=== PATIENT | female | born 1980 | race Caucasian/White ===

== ENCOUNTER 2016-09-17 19:03 | Emergency (ER) | payer OTHER ==
[~2016-09-17] VITALS: Ht 165.1 cm; Wt 151.0 kg
[~2016-09-17 19:03] MED LIST: CHN/1 PO; ERGO1CAP35 PO; TRAM-10 PO
[2016-09-17 19:20] VITALS: TEMP 36.6; Ht 165.1 cm; Wt 151.0 kg
[2016-09-17] MEDS ORDERED: ORAGEL TOP (19:36)
[2016-09-17] MEDS ORDERED: IBUP-103 PO (19:36)
[2016-09-17] MEDS ORDERED: ACET-1256 PO (19:36)
[2016-09-17] MEDS ORDERED: KETOROLAC TROMETHAMINE 60 MG/2 ML VIAL IM STA (19:52)
[2016-09-17] MEDS ORDERED: PENICILLIN V POTASSIUM 250 MG TAB PO STA (19:52)
[2016-09-17] MEDS ORDERED: CYCL5TAB PO (20:30)
[2016-09-17] MEDS ORDERED: PENI-82 PO (20:30)
--- NOTE | 2016-09-17 20:32 | EMERGENCY ROOM VISIT NOTE ---
ED Visit Note First contact with patient: 19:37 CHIEF COMPLAINT: Low back pain, dental pain HISTORY OF PRESENT ILLNESS: This 36-year-old female patient presents to the emergency department, ambulatory, complaining of pain in the low back which began is morning, after lifting her 3-month-old out of her PAC complaint. The pain is now constant and worse with movement. The patient notes the pain as pressure and a 10/10. The patient has taken one Vicodin and taking a warm bath without relief of the pain. The patient states the pain does radiate down her left leg. The patient denies any loss of control of their bowel or bladder functions. There has been no leg numbness or weakness, and no change in sensation. No nausea or vomiting or abdominal pain. No chest pain or shortness of breath. The patient has had prior back injuries and surgery. No dysuria or increased urinary frequency. The patient also complains of a progressive toothache for past 2 weeks. The patient believes it is coming from her lower back molar on the right. The pain is now steady and severe and radiates to the face. The patient does not have a dentist appointment set up because she states she has just switched dentist due to her insurance. They rate their pain a 10/10 and the oragel, ibuprofen and Tylenol they have been taking has not relieved the pain. Denies facial swelling or fever. The patient denies any discharge from the mouth. The patient has experienced chills, but denies fever, nausea, vomiting. REVIEW OF SYSTEMS: A 10-system review of systems was performed with positives and pertinent negatives listed in the history of present illness. All other systems were reviewed and are negative. ALLERGIES: Pyridium MEDICATIONS: None PMH: Lumbar laminectomy, chronic low back pain SOCIAL HISTORY: The patient lives in [place] with her boyfriend and children. The patient denies alcohol use. The patient does admit to smoking approximately 5 cigarettes per day. The patient also admits to smoking marijuana. PHYSICAL EXAM: VITALS: Vitals are noted on the nurse's note and reviewed by myself. Vital signs stable. GENERAL: This is a 36-year-old female, in no acute distress, nondiaphoretic, well-developed well-nourished. SKIN: The skin was without rashes, erythema, edema, or bruising. Capillary refill less than 2 seconds. MOUTH: The #32 tooth is very carious and the gum is swollen and tender around it, without any discharge or signs of an abscess. The remainder of the pharynx and tonsils are without erythema, edema, or exudate. The airway is patent. There is no facial swelling, cervical or submandibular lymphadenopathy. The patient appears uncomfortable and in pain. The patient has overall extremely poor dental hygiene. EARS: External auditory canals clear, tympanic membranes pearly herring without erythema or effusion bilaterally. NECK: Supple without nuchal rigidity. No cervical spine tenderness. No paraspinous muscle tenderness. HEART: Regular rate and rhythm without murmurs gallops or rubs. LUNGS: Clear to auscultation bilaterally without wheezes, rales or rhonchi. ABDOMEN: Positive bowel sounds x 4. Normal tympanic percussion. Soft, nontender, without masses or organomegaly. Daniel sign negative. MUSCULOSKELETAL: No muscle atrophy, erythema, or edema noted of the back. There is moderate tenderness over the lumbar spinous processes on the left. There is mild tenderness over the paraspinous muscles on the left. There is no tenderness over the thoracic spine or paraspinous muscles. There are no muscle spasms present. The patient is slow to move around with maximum tenderness with positional changes. Positive straight leg raise test on the left. NEURO: Patient was alert and oriented to person place and time. Normal sensation to light and sharp touch. Deep tendon reflexes 2+ in the lower extremities. Dorsalis pedis pulse 2+ bilaterally. Strength 5/5 and equal in the bilateral lower extremities. RADIOLOGY: X-Ray L-Spine: FINDINGS: There is no fracture. No subluxation. Degenerative disc change L5-S1 unaltered from the prior study. Posterior elements appear intact. IMPRESSION: Stable degenerative disc change L5-S1. No change from the prior exam. EMERGENCY DEPARTMENT COURSE: She was seen and evaluated as above. X-ray of the lumbar spine was ordered and reviewed by myself and radiologist. The patient was given a dose of Pen-Vee K by mouth and 60 mg Toradol IM. The patient did report mild improvement in her pain. I discussed discharge instructions the patient, and she was discharged home in good condition. I did consult with PDMP with no issues identified. DIFFERENTIAL DIAGNOSIS: Dental abscess, odontalgia, lumbar strain, sciatica, lumbar fracture, acute sinusitis, acute nasopharyngitis, acute otitis media, and others. DIAGNOSIS: Lumbar strain, odontalgia DISCHARGE INSTRUCTIONS AND TREATMENT: You have been treated in the Emergency Department for Back Pain and dental pain. You were prescribed PCN VK to be taken 3 times daily. This is an antibiotic. All antibiotics have the potential to cause diarrhea. Stop this medication and contact a medical provider if you were to develop any significant adverse side effects including: wheezing, shortness of breath, passing out, vomiting, or a diffuse rash. Always take antibiotics as directed and COMPLETE the ENTIRE course regardless of the improvement of your symptoms. Refrain from smoking cigarettes or using chewing tobacco until you have been evaluated by your dentist. Keeping beverages lukewarm and consuming soft foods can decrease your pain. Warm compresses over the affected area may offer some relief. You MUST seek evaluation of your dental pain by a dentist following your visit to the Emergency Department. The Emergency Department is not capable of treating dental issues long-term. You should call your dentist as soon as possible to make an appointment for evaluation of your dental pain. Return to the emergency department if you develop the following symptoms despite treatment course outlined above: fever, intractable pain, increased redness, swelling, or purulent discharge. You have been prescribed tramadol to be used for pain control. This is a narcotic medication. You cannot drive or consume alcohol while on this medicine. This medicine should only be used for pain that cannot be controlled with gesm-xox-sqbjrzg pain medicines. You have been prescribed Flexeril (cyclobenzaprine) 1-2 tabs orally, three times per day. Do NOT exceed 30 mg (6 tabs) per day. Take your first dose at bedtime as it can make you drowsy. Always take all medications as prescribed. For pain control, you can use the following wnlf-yps-iafjaid medicines (if >12 yo): Ibuprofen(Motrin, Advil) may be used for fever or pain. Use 600mg every six hours as needed. Take with food. Avoid using more than 2400mg in a 24 hour period. Do not use 2400mg per day for more than three consecutive days without physician direction. Prolonged inappropriate use can lead to stomach upset or ulcers. (AND/OR) Acetaminophen(Tylenol) may be used for fever or pain. Use 1000mg every six hours as needed. Avoid using more than 3000mg in a 24 hour period. If this is an acute injury, ice can be applied to the area of pain for the first 3 days to help decrease pain and inflammation. After the first 3 days, a heating pad can be used over the area for continued soothing relief. You should schedule a follow-up appointment in 2-3 days with your Primary Care Provider or orthopedic surgeon for further evaluation and treatment of your back pain. Return to the Emergency Department if your current symptoms worsen despite treatment course outlined above, or if you develop any of the following symptoms : intractable pain despite aforementioned treatment course, loss of control of your bowel or bladder, numbness or tingling in your groin, or development of a fever. Problem List Medical Problems: (1) Asthma Status: Chronic (2) Bronchitis Status: Chronic (3) Cervicalgia Status: Resolved (4) DVT (deep venous thrombosis) Status: Resolved (5) Gestational diabetes Status: Resolved (6) Hemorrhagic ovarian cyst Status: Resolved (7) Ovarian cyst Status: Chronic (8) Ovarian cyst Status: Resolved (9) Ovarian Cyst Nec/Nos Status: Resolved (10) Ovarian torsion Status: Resolved (11) PE (pulmonary embolism) Status: Resolved (12) PNA (pneumonia) Status: Chronic (13) Postsurgical States Nec Status: Resolved Surgical Problems: (1) History of oophorectomy, unilateral Status: Resolved (2) Hx of cholecystectomy Status: Chronic Current/Historical Medications Scheduled Cyclobenzaprine Hcl (Flexeril), 5 MG PO TID Ibuprofen Tab (Advil), 400 MG PO PRN UD Penicillin V Potassium (Veetids), 500 MG PO TID [Oragel], 1 APPLN TOP PRN Scheduled PRN Acetaminophen (Tylenol), 1,000 MG PO Q6 PRN for Pain Allergies Coded Allergies: Phenazopyridine (Verified Allergy, Unknown, hives, jaundice, 10/29/15) Vital Signs Date Time Temp Pulse Resp B/P (MAP) Pulse Ox O2 Delivery O2 Flow Rate FiO2 09/17/16 19:20 36.6 99 16 144/86 98 Room Air Medications Administered Medications (Trade) Dose Ordered Sig/Tani Route Start Time Stop Time Status Last Admin Dose Admin Ketorolac Tromethamine (Toradol Inj) 60 mg NOW STAT IM 09/17/16 19:52 09/17/16 19:54 DC 09/17/16 20:03 60 MG Penicillin V Potassium (Veetids Tab) 500 mg NOW STAT PO 09/17/16 19:52 09/17/16 19:54 DC 09/17/16 19:59 500 MG Departure Information Impression Primary Impression: Odontalgia Additional Impression: Lumbar back pain Dispostion Home / Self-Care Condition GOOD Prescriptions Tramadol (Ultram) 50 Mg Tab 1 TAB PO TID Y for Pain, #9 TAB Prov: Yazmin Garcia PA-C 09/17/16 Cyclobenzaprine Hcl (FLEXERIL) 5 Mg Tab 5 MG PO TID, #15 TAB PRN Prov: Yazmin Garcia PA-C 09/17/16 Penicillin V Potassium (Veetids) 500 Mg Tab 500 MG PO TID for 10 Days, #30 TAB Prov: Yazmin Garcia PA-C 09/17/16 Referrals Vadim Whittaker M.D. (PCP) Patient Instructions ED Abscess Dental, ED Low Back Pain Injury, [facility] Additional Instructions You have been treated in the Emergency Department for Back Pain and dental pain. You were prescribed PCN VK to be taken 3 times daily. This is an antibiotic. All antibiotics have the potential to cause diarrhea. Stop this medication and contact a medical provider if you were to develop any significant adverse side effects including: wheezing, shortness of breath, passing out, vomiting, or a diffuse rash. Always take antibiotics as directed and COMPLETE the ENTIRE course regardless of the improvement of your symptoms. Refrain from smoking cigarettes or using chewing tobacco until you have been evaluated by your dentist. Keeping beverages lukewarm and consuming soft foods can decrease your pain. Warm compresses over the affected area may offer some relief. You MUST seek evaluation of your dental pain by a dentist following your visit to the Emergency Department. The Emergency Department is not capable of treating dental issues long-term. You should call your dentist as soon as possible to make an appointment for evaluation of your dental pain. Return to the emergency department if you develop the following symptoms despite treatment course outlined above: fever, intractable pain, increased redness, swelling, or purulent discharge. You have been prescribed tramadol to be used for pain control. This is a narcotic medication. You cannot drive or consume alcohol while on this medicine. This medicine should only be used for pain that cannot be controlled with fubk-fci-ocnwebv pain medicines. You have been prescribed Flexeril (cyclobenzaprine) 1-2 tabs orally, three times per day. Do NOT exceed 30 mg (6 tabs) per day. Take your first dose at bedtime as it can make you drowsy. Always take all medications as prescribed. For pain control, you can use the following piab-dmx-zgxkmtf medicines (if >12 yo): Ibuprofen(Motrin, Advil) may be used for fever or pain. Use 600mg every six hours as needed. Take with food. Avoid using more than 2400mg in a 24 hour period. Do not use 2400mg per day for more than three consecutive days without physician direction. Prolonged inappropriate use can lead to stomach upset or ulcers. (AND/OR) Acetaminophen(Tylenol) may be used for fever or pain. Use 1000mg every six hours as needed. Avoid using more than 3000mg in a 24 hour period. If this is an acute injury, ice can be applied to the area of pain for the first 3 days to help decrease pain and inflammation. After the first 3 days, a heating pad can be used over the area for continued soothing relief. You should schedule a follow-up appointment in 2-3 days with your Primary Care Provider or orthopedic surgeon for further evaluation and treatment of your back pain. Return to the Emergency Department if your current symptoms worsen despite treatment course outlined above, or if you develop any of the following symptoms : intractable pain despite aforementioned treatment course, loss of control of your bowel or bladder, numbness or tingling in your groin, or development of a fever. Problem Qualifiers Additional Impression: Lumbar back pain Chronicity: acute Back pain laterality: left Sciatica presence: with sciatica Sciatica laterality: sciatica of left side Qualified Codes: M54.42 - Lumbago with sciatica, left side
--- NOTE | 2016-09-17 20:36 | DIAGNOSTIC IMAGING REPORT ---
L-SPINE MIN 4 VIEWS ROUTINE HISTORY: Pain low back pain COMPARISON: 11/30/2014 FINDINGS: There is no fracture. No subluxation. Degenerative disc change L5-S1 unaltered from the prior study. Posterior elements appear intact. IMPRESSION: Stable degenerative disc change L5-S1. No change from the prior exam. The above report was generated using voice recognition software. It may contain grammatical, syntax or spelling errors. Electronically signed by: Haider Winston M.D. 09/17/2016 8:35 PM Dictated Date/Time: 09/17/2016 8:34 PM
[2016-09-17] MEDS ORDERED: TRAM-10 PO (20:43)
[2016-09-17 21:40] VITALS: BP 101/69; PULSE 73; O2SAT 93
== END 2016-09-17 21:41 | disposition home or self-care (01) ==
LOC: C.EDB 19:05 → C.EDD 21:41
DX: M54.42 Lumbago with sciatica, left side (principal); K08.89 Other specified disorders of teeth and supporting structures; J45.909 Unspecified asthma, uncomplicated; Z86.718 Personal history of other venous thrombosis and embolism; Z87.01 Personal history of pneumonia (recurrent)

== ENCOUNTER 2016-09-28 12:08 | Emergency (ER) | payer OTHER ==
[~2016-09-28] VITALS: Ht 165.1 cm; Wt 133.4 kg
[~2016-09-28 12:08] MED LIST changes: +ACET-1256 PO; -CHN/1 PO; +CYCL5TAB PO; -ERGO1CAP35 PO; +IBUP-103 PO; +ORAGEL TOP; +PENI-82 PO
[2016-09-28 12:19] VITALS: TEMP 36.8; Ht 165.1 cm; Wt 133.4 kg
[2016-09-28] MEDS ORDERED: KETOROLAC TROMETHAMINE 30 MG/ML VIAL IV STA (14:10)
[2016-09-28] MEDS ORDERED: SODIUM CHLORIDE 0.9% 1000ML 1,000 ML IV STA (14:10)
[2016-09-28 14:48] LABS: URINE APPEARANCE CLEAR (CLEAR); URINE BILIRUBIN NEG (NEG); URINE COLOR YELLOW; URINE EPITHELIAL CELL AUTO 20-30 /lpf (0-5); URINE NITRITE POS (NEG); URINE SPECIFIC GRAVITY 1.014 (1.000-1.030); UROBILINOGEN NEG (NEG); ZZUR CULT IF INDIC CLEAN CATCH YES
[2016-09-28 14:56] LABS: MANUAL MICROSCOPIC REQUIRED? NO; REVIEW REQ? NO
[2016-09-28 14:58] LABS: BASO % 0.2 %; BASO ABS # 0.02 K/uL (0-0.2); COMPLETE YES; EOS % 1.9 %; HEMATOCRIT 39.3 % (37-47); IG% 0.4 %; LYMPH % 28.9 %; LYMPH ABS # 2.42 K/uL (1.2-3.4); MEAN CORPUSCULAR HEMOGLOBIN 36.3 pg (25-34); MEAN CORPUSCULAR HGB CONC 33.6 g/dl (32-36); MEAN PLATELET VOLUME 9.8 fL (7.4-10.4); MONO % 8.4 %; NEUT % 60.2 %; PLATELET COUNT 174 K/uL (130-400); RED BLOOD COUNT 3.64 M/uL (4.2-5.4); WHITE BLOOD COUNT 8.36 K/uL (4.8-10.8)
[2016-09-28 15:15] LABS: ALB/GLOB RATIO 0.9 (0.9-2); ALKALINE PHOSPHATASE 103 U/L (45-117); ALT/SGPT 26 U/L (12-78); BLOOD UREA NITROGEN 15 mg/dl (7-18); BUN/CREATININE RATIO 18.1 (10-20); CALCIUM 8.8 mg/dl (8.5-10.1); CARBON DIOXIDE 25 mmol/L (21-32); CHLORIDE 109 mmol/L (98-107); CREATININE 0.81 mg/dl (0.60-1.20); GLUCOSE 77 mg/dl (70-99); SODIUM 142 mmol/L (136-145)
--- NOTE | 2016-09-28 15:47 | DIAGNOSTIC IMAGING REPORT ---
ULTRASOUND OF THE PELVIS CLINICAL HISTORY: Pelvic pain. COMPARISON STUDY: Pelvic CT dated 10/29/2015. Pelvic ultrasound dated 04/12/2015. TECHNIQUE: Real-time, grayscale, and color flow sonography of the pelvis is performed both transabdominally and endovaginally. Images are reviewed in the transverse and longitudinal planes. FINDINGS: Uterus: The uterus is normal in size and echotexture, measuring 8.4 x 4.9 x 5.3 cm. Endometrium: The endometrium is normal in appearance, and the endometrial stripe is normal in thickness measuring up to 0.8 cm. Ovaries: The left ovary is not identified and reported surgically absent. The right ovary measures 3.4 x 3.8 x 3.3 cm. There is a minimally complex dominant follicle in the right ovary measuring up to 3.3 cm. Normal Doppler waveforms are shown within the right ovary. Pelvis: There is no free fluid in the cul-de-sac. No concerning adnexal lesion is seen. IMPRESSION: 1. Unremarkable sonographic assessment of the uterus. 2. There is a 3.3 cm complex/hemorrhagic dominant follicle identified in the right ovary. There is no sonographic evidence of ovarian torsion at the time of examination. 3. The left ovary was not identified and is reported surgically absent. Electronically signed by: Barron Fleming M.D. 09/28/2016 3:46 PM Dictated Date/Time: 09/28/2016 3:43 PM
[2016-09-28] MEDS ORDERED: MoRPHine SULFATE 10 MG/ML CARP/VIAL IV STA (16:14)
[2016-09-28] MEDS ORDERED: SULF800T23 PO (16:46)
--- NOTE | 2016-09-28 16:46 | EMERGENCY ROOM VISIT NOTE ---
History First contact with patient: 13:48 Chief Complaint: ABDOMINAL PAIN Stated Complaint: LOWER ABD PAIN Nursing Triage Summary: PT stated that around 1030 this morning she started to experience stabbing abdominal pain in her right lower quadrant. Pt stated that the pain is continous, a 10 out of 10 on the pain scale. Pt denies any N/V/D. Pt has history of ovarian cysts and believes that this may be the cause of the pain. History of Present Illness The patient is a 36 year old female who presents to the Emergency Room with complaints of lower abdominal pain. The patient states that she has had pain across her lower abdomen which began this morning. She describes the pain as a stabbing sensation and rates the discomfort a 10/10. She states the pain came on fairly suddenly this morning. It has been gradually worsening throughout the day. She has a history of ovarian torsion and had her left ovary removed. She has had cyst removed from the right ovary. She denies any other history of abdominal surgeries. She denies any associated urinary symptoms, no nausea/ vomiting, fevers, vaginal bleeding/discharge, changes in bowel movements. She had a vaginal delivery 3 months ago. She took ibuprofen at home with no relief of her pain. Review of Systems A complete 10 point review of systems was reviewed with the patient with pertinent positives and negatives as per history of present illness. All else were negative. Past Medical/Surgical History Medical Problems: (1) Asthma (2) Bronchitis (3) Cervicalgia (4) DVT (deep venous thrombosis) (5) Gestational diabetes (6) Hemorrhagic ovarian cyst (7) Ovarian cyst (8) Ovarian cyst (9) Ovarian Cyst Nec/Nos (10) Ovarian torsion (11) PE (pulmonary embolism) (12) PNA (pneumonia) (13) Postsurgical States Nec Surgical Problems: (1) History of oophorectomy, unilateral (2) Hx of cholecystectomy Family History Cancer Diabetes mellitus FH: gallbladder disease FH: kidney disease Heart disease Hypertension Lung disease Social History Smoking Status: Current Every Day Smoker Alcohol Use: occasionally Marital Status: Housing Status: lives with family Occupation Status: unemployed Current/Historical Medications Scheduled Sulfa/Trimethoprim (Bactrim Ds 800MG/160MG), 1 TAB PO BID Allergies Coded Allergies: Phenazopyridine (Verified Allergy, Unknown, hives, jaundice, 09/28/16) Physical Exam Vital Signs Date Time Temp Pulse Resp B/P (MAP) Pulse Ox O2 Delivery O2 Flow Rate FiO2 09/28/16 17:07 68 18 121/77 98 09/28/16 14:22 73 16 117/75 99 Room Air 09/28/16 12:19 36.8 84 20 158/96 97 Room Air Pain Rating (0-10): 9.0 Physical Exam VITALS: Vitals are noted on the nurse's note and reviewed by myself. Vital signs stable. GENERAL: This is a 36-year-old female, in no acute distress, nondiaphoretic, well-developed well-nourished. HEENT: Normocephalic. PERRLA. Mucous membranes moist. Neck is supple without nuchal rigidity. HEART: Regular rate and rhythm without murmurs gallops or rubs. LUNGS: Clear to auscultation bilaterally without wheezes, rales or rhonchi. No retractions or accessory muscle use. ABDOMEN: Positive bowel sounds x 4. Soft, moderate tenderness to palpation across the lower abdomen. No guarding or rebound tenderness. NEURO: Patient was alert and oriented to person place and time. Medical Decision & Procedures ER Provider Diagnostic Interpretation: ULTRASOUND OF THE PELVIS FINDINGS: Uterus: The uterus is normal in size and echotexture, measuring 8.4 x 4.9 x 5.3 cm. Endometrium: The endometrium is normal in appearance, and the endometrial stripe is normal in thickness measuring up to 0.8 cm. Ovaries: The left ovary is not identified and reported surgically absent. The right ovary measures 3.4 x 3.8 x 3.3 cm. There is a minimally complex dominant follicle in the right ovary measuring up to 3.3 cm. Normal Doppler waveforms are shown within the right ovary. Pelvis: There is no free fluid in the cul-de-sac. No concerning adnexal lesion is seen. IMPRESSION: 1. Unremarkable sonographic assessment of the uterus. 2. There is a 3.3 cm complex/hemorrhagic dominant follicle identified in the right ovary. There is no sonographic evidence of ovarian torsion at the time of examination. 3. The left ovary was not identified and is reported surgically absent. Laboratory Results 09/28/16 14:34 Red Blood Count 3.64, Mean Corpuscular Volume 108.0, Mean Corpuscular Hemoglobin 36.3, Mean Corpuscular Hemoglobin Concent 33.6, Mean Platelet Volume 9.8, Neutrophils (%) (Auto) 60.2, Lymphocytes (%) (Auto) 28.9, Monocytes (%) ( Auto) 8.4, Eosinophils (%) (Auto) 1.9, Basophils (%) (Auto) 0.2, Neutrophils # ( Auto) 5.03, Lymphocytes # (Auto) 2.42, Monocytes # (Auto) 0.70, Eosinophils # ( Auto) 0.16, Basophils # (Auto) 0.02 09/28/16 14:34 Test 09/28/16 12:38 09/28/16 14:34 Urine Color YELLOW Urine Appearance CLEAR (CLEAR) Urine pH 6.0 (4.5-7.5) Urine Specific [place] 1.014 (1.000-1.030) Urine Protein NEG (NEG) Urine Glucose (UA) NEG (NEG) Urine Ketones NEG (NEG) Urine Occult Blood NEG (NEG) Urine Nitrite POS (NEG) Urine Bilirubin NEG (NEG) Urine Urobilinogen NEG (NEG) Urine Leukocyte Esterase SMALL (NEG) Urine WBC (Auto) 10-30 /hpf (0-5) Urine RBC (Auto) 0-4 /hpf (0-4) Urine Hyaline Casts (Auto) 0 /lpf (0-5) Urine Epithelial Cells (Auto) 20-30 /lpf (0-5) Urine Bacteria (Auto) 4+ (NEG) Urine Test NEG (NEG) White Blood Count 8.36 K/uL (4.8-10.8) Red Blood Count 3.64 M/uL (4.2-5.4) Hemoglobin 13.2 g/dL (12.0-16.0) Hematocrit 39.3 % (37-47) Mean Corpuscular Volume 108.0 fL (80-100) Mean Corpuscular Hemoglobin 36.3 pg (25-34) Mean Corpuscular Hemoglobin Concent 33.6 g/dl (32-36) Platelet Count 174 K/uL (130-400) Mean Platelet Volume 9.8 fL (7.4-10.4) Neutrophils (%) (Auto) 60.2 % Lymphocytes (%) (Auto) 28.9 % Monocytes (%) (Auto) 8.4 % Eosinophils (%) (Auto) 1.9 % Basophils (%) (Auto) 0.2 % Neutrophils # (Auto) 5.03 K/uL (1.4-6.5) Lymphocytes # (Auto) 2.42 K/uL (1.2-3.4) Monocytes # (Auto) 0.70 K/uL (0.11-0.59) Eosinophils # (Auto) 0.16 K/uL (0-0.5) Basophils # (Auto) 0.02 K/uL (0-0.2) RDW Standard Deviation 54.5 fL (36.4-46.3) RDW Coefficient of Variation 13.7 % (11.5-14.5) Immature Granulocyte % (Auto) 0.4 % Immature Granulocyte # (Auto) 0.03 K/uL (0.00-0.02) Anion Gap 8.0 mmol/L (3-11) Est Creatinine Clear Calc Drug Dose 132.7 ml/min Estimated GFR () 108.3 Estimated GFR (Non- 93.4 BUN/Creatinine Ratio 18.1 (10-20) Calcium Level 8.8 mg/dl (8.5-10.1) Total Bilirubin 0.4 mg/dl (0.2-1) Aspartate Amino Transf (AST/SGOT) U/L (15-37) Alanine Aminotransferase (ALT/SGPT) 26 U/L (12-78) Alkaline Phosphatase 103 U/L (45-117) Total Protein 7.1 gm/dl (6.4-8.2) Albumin 3.3 gm/dl (3.4-5.0) Globulin 3.8 gm/dl (2.5-4.0) Albumin/Globulin Ratio 0.9 (0.9-2) Lipase 99 U/L (73-393) Medications Administered Medications (Trade) Dose Ordered Sig/Tani Route Start Time Stop Time Status Last Admin Dose Admin Sodium Chloride 1,000 ml @ 999 mls/hr Q1H1M STAT IV 09/28/16 14:10 09/28/16 15:10 DC 09/28/16 14:50 999 MLS/HR Ketorolac Tromethamine (Toradol Inj) 30 mg NOW STAT IV 09/28/16 14:10 09/28/16 14:12 DC 09/28/16 14:51 30 MG Morphine Sulfate (MoRPHine SULFATE INJ) 6 mg NOW STAT IV 09/28/16 16:14 09/28/16 16:15 DC 09/28/16 16:28 6 MG ED Course The patient was evaluated as above. Labs were drawn and IV access was obtained. Patient was medicated with 1 L normal saline solution and 30 mg Toradol IV. Pelvic ultrasound was performed and read by radiology as above. Patient was reevaluated and stated her pain had not improved. She was given 6 g morphine IV. Discharge instructions were reviewed with the patient. The patient verbalized understanding of my assessment and treatment plan and was discharged home in good condition. Medical Decision Differential diagnosis includes ovarian cyst, ovarian torsion, pelvic inflammatory disease, urinary tract infection, appendicitis, cholecystitis, gastroenteritis, diverticulitis, among others. The patient is a 36-year-old female who presents today complaining of lower abdominal pain. Labs revealed no leukocytosis, anemia or concerning electrolyte abnormalities. Pelvic ultrasound showed a dominant right ovarian follicle with no evidence of torsion. Patient was instructed to follow-up with [facility] regarding this. Urinalysis did show positive nitrites, leukocyte esterase and 4+ bacteria. I feel this likely represents infection and the patient will be treated empirically with Bactrim pending the results of the culture. She is afebrile and vital signs were stable throughout the stay. Based on the patient's presentation and work up, I feel the patient is stable for outpatient treatment. The patient was educated to return to the emergency department for any worsening of their current condition or new/concerning symptoms. She will follow up with her PCP and [facility]. Medication reconciliation: I attest that I have personally reviewed the patient 's current medication list. Blood pressure screening: Patient was found to have normal blood pressure on screening and does not require follow-up. Impression Primary Impression: Lower abdominal pain Additional Impression: Urinary tract infection Departure Information Dispostion Home / Self-Care Condition GOOD Prescriptions Sulfa/Trimethoprim (Bactrim Ds 800MG/160MG) Tab 1 TAB PO BID for 7 Days, #14 TAB Prov: Shelley Carvajal .MARYANNE 09/28/16 Referrals No Doctor, Assigned (PCP) Patient Instructions My [facility] Additional Instructions You have been treated in the Emergency Department your Abdominal Pain. Laboratory results and imaging studies have ruled out any emergent causes for your abdominal pain which would warrant admission or surgery. You have been prescribed Bactrim for a suspected urinary tract infection. For pain control, you can use the following [id number] medicines (if >12 yo): - Regular strength (325mg/tab) Tylenol (acetaminophen) 2 tabs every 4-6 hours as needed. Do not exceed 12 tablets in a 24 hour period. Avoid taking more than 4 grams (4000 mg) of Tylenol per day. This includes any other sources of acetaminophen you may take on a regular basis. - Regular strength (200 mg/tab) Advil (ibuprofen) 1-2 tabs every 4-6 hours as needed. Do not exceed a dose of 3200 mg per day. Drink plenty of water and stay well hydrated. As with any trip to the Emergency Department, you should follow-up with your Primary Care Provider from today's visit. Return to the emergency department if your symptoms persist despite treatment plan outlined above or if the following symptoms occur: Increasing pain, fever, neck pain, vomiting or any other new/concerning symptoms. Problem Qualifiers Additional Impression: Urinary tract infection Urinary tract infection type: acute cystitis Hematuria presence: without hematuria Qualified Codes: N30.00 - Acute cystitis without hematuria
[2016-09-28 17:07] VITALS: BP 121/77; PULSE 68; O2SAT 98
== END 2016-09-28 17:14 | disposition home or self-care (01) ==
LOC: C.EDB 12:10 → C.EDC 17:14
DX: R10.30 Lower abdominal pain, unspecified (principal); N39.0 Urinary tract infection, site not specified; J45.909 Unspecified asthma, uncomplicated; M54.2 Cervicalgia; E11.9 Type 2 diabetes mellitus without complications; I26.99 Other pulmonary embolism without acute cor pulmonale; Z83.3 Family history of diabetes mellitus; Z82.49 Family history of ischemic heart disease and other diseases of the circulatory system; F17.200 Nicotine dependence, unspecified, uncomplicated

== ENCOUNTER 2016-11-02 22:36 | Emergency (ER) | payer OTHER ==
[~2016-11-02] VITALS: Ht 165.1 cm; Wt 140.4 kg
[2016-11-02 22:45] VITALS: Ht 165.1 cm; Wt 140.4 kg
[2016-11-02 23:46] VITALS: TEMP 36.8
[2016-11-03] MEDS ORDERED: KETOROLAC TROMETHAMINE 60 MG/2 ML VIAL IM STA (00:07)
[2016-11-03] MEDS ORDERED: HYDROmorphone INJ 2 MG/ML SYR/VIAL IM STA (00:07)
[2016-11-03] MEDS ORDERED: TRAM-10 PO (00:12)
[2016-11-03 00:30] VITALS: BP 112/73; PULSE 82; O2SAT 96
--- NOTE | 2016-11-03 06:22 | DIAGNOSTIC IMAGING REPORT ---
R VENOUS DOPP LOWER EXT UNILAT CLINICAL HISTORY: Pt c/o rle swelling pain. Edema. TECHNIQUE: Venous Doppler COMPARISON STUDY: None FINDINGS: Normal study IMPRESSION: Normal study The above report was generated using voice recognition software. It may contain grammatical, syntax or spelling errors. Electronically signed by: Haider Winston M.D. 11/03/2016 6:21 AM Dictated Date/Time: 11/03/2016 6:21 AM
--- NOTE | 2016-11-19 07:29 | EMERGENCY ROOM VISIT NOTE ---
History First contact with patient: 22:49 Chief Complaint: LEG PAIN,LEG INJURY Stated Complaint: STABBING PAIN IN RT THIGH,HX BLOOD CLOTS History of Present Illness The patient is a 36 year old female who presents to the Emergency Room with complaints of right thigh pain. The patient presents emergency department complaining of right side pain that has been ongoing for the past 2 days. Patient is worried that she has a blood clot as she has a history of DVT in the past. The patient has been walking on the leg without any problems. She denies any fevers or chills. The patient has not taken anything for the pain. Review of Systems See HPI for pertinent positives & negatives. A total of 10 systems reviewed and were otherwise negative. Past Medical/Surgical History Medical Problems: (1) Asthma (2) Bronchitis (3) Cervicalgia (4) DVT (deep venous thrombosis) (5) Gestational diabetes (6) Hemorrhagic ovarian cyst (7) Ovarian cyst (8) Ovarian cyst (9) Ovarian Cyst Nec/Nos (10) Ovarian torsion (11) PE (pulmonary embolism) (12) PNA (pneumonia) (13) Postsurgical States Nec Surgical Problems: (1) History of oophorectomy, unilateral (2) Hx of cholecystectomy Family History Cancer Diabetes mellitus FH: gallbladder disease FH: kidney disease Heart disease Hypertension Lung disease Social History Smoking Status: Current Every Day Smoker Alcohol Use: occasionally Marital Status: Housing Status: lives with family Occupation Status: unemployed Current/Historical Medications Scheduled PRN Tramadol (Ultram), 1 TAB PO TID PRN for Pain or Fever Physical Exam Vital Signs Date Time Temp Pulse Resp B/P (MAP) Pulse Ox O2 Delivery O2 Flow Rate FiO2 11/03/16 00:30 82 18 112/73 96 11/02/16 23:46 36.8 80 18 115/59 97 Room Air 11/02/16 22:45 36.8 86 18 146/84 96 Room Air Physical Exam GENERAL: Patient is a healthy-appearing well-nourished female HEAD: Normocephalic atraumatic EYES: Ocular movements intact pupils equal and react to light OROPHARYNX mucous membranes are moist no exudates present no erythema or edema present NECK: Supple no nuchal rigidity CHEST: Good equal expansion LUNGS: Clear and equal to auscultation CARDIAC: Normal S1 and S2 ABDOMEN: Soft nontender no guarding BACK: No CVA tenderness EXTREMITIES: No pain upon palpation normal muscle strength in all groups no clubbing cyanosis or edema RLE: no cellulitis, neurovascularly intact, no palpation of cord NEURO: Patient is following commands is answering questions appropriately. Alert and oriented x3 Cranial Nerves 2-12 grossly intact Medical Decision & Procedures ER Provider Diagnostic Interpretation: R VENOUS DOPP LOWER EXT UNILAT CLINICAL HISTORY: Pt c/o rle swelling pain. Edema. TECHNIQUE: Venous Doppler COMPARISON STUDY: None FINDINGS: Normal study IMPRESSION: Normal study The above report was generated using voice recognition software. It may contain grammatical, syntax or spelling errors. Electronically signed by: Haider Winston M.D. 11/03/2016 6:21 AM Dictated Date/Time: 11/03/2016 6:21 AM Medications Administered Medications (Trade) Dose Ordered Sig/Tani Route Start Time Stop Time Status Last Admin Dose Admin Ketorolac Tromethamine (Toradol Inj) 60 mg NOW STAT IM 11/03/16 00:07 11/03/16 00:09 DC 11/03/16 00:23 60 MG Hydromorphone HCl (Dilaudid Inj) 2 mg NOW STAT IM 11/03/16 00:07 11/03/16 00:09 DC 11/03/16 00:22 2 MG Medical Decision This is a 36 rolled female that presents emergency department complaining of right thigh pain. Patient is concerned that she has a blood clot. Patient was sent for ultrasound of the right lower extremity. This shows no evidence of a DVT. The patient was given Toradol and Dilaudid while she was in the emergency department repeat examination revealed improvement patient's symptoms. I strongly recommended that the patient follow-up with orthopedics and have a repeat ultrasound performed in 1 week if she is still continuing to have pain. Patient was in agreement with the treatment plan. Impression Primary Impression: Leg pain, right Departure Information Dispostion Home / Self-Care Condition GOOD Prescriptions Tramadol (Ultram) 50 Mg Tab 1 TAB PO TID Y for Pain or Fever, #14 TAB Prov: Julio Cesar Balbuena MD 11/03/16 Referrals Linda Negron (PCP) Alonzo Schafer D.O. Forms HOME CARE DOCUMENTATION FORM, School Instructions, Work Instructions, IMPORTANT VISIT INFORMATION Patient Instructions [facility], ED Strain Groin, ED RICE Additional Instructions Follow up with Dr Schafer You received narcotic or benzodiazepene medication while in the emergency room today. This is an addictive medication that may cause drowziness as well as constipation. Do not drive, operate heavy machinery, or drink alcohol under the influence of this medication. Take 600 mg Ibuprofen every 6 hours Take Ultram for breakthrough pain You have been examined and treated today on an emergency basis only. This is not a substitute for, or an effort to provide, complete comprehensive medical care. It is impossible to recognize and treat all injuries or illnesses in a single emergency department visit. It is therefore important that you follow up closely with Dr Baker. Call as soon as possible for an appointment. Thank you for your time and consideration. I look forward to speaking with you again soon. Please don't hesitate to call us if you have any questions.
== END 2016-11-03 00:32 | disposition home or self-care (01) ==
LOC: C.EDB 22:37
DX: M79.651 Pain in right thigh (principal); Z86.718 Personal history of other venous thrombosis and embolism; J45.909 Unspecified asthma, uncomplicated; F17.210 Nicotine dependence, cigarettes, uncomplicated; Z86.711 Personal history of pulmonary embolism; Z87.01 Personal history of pneumonia (recurrent); Z90.49 Acquired absence of other specified parts of digestive tract; Z90.721 Acquired absence of ovaries, unilateral; Z80.9 Family history of malignant neoplasm, unspecified; Z83.3 Family history of diabetes mellitus; Z82.49 Family history of ischemic heart disease and other diseases of the circulatory system

== ENCOUNTER 2017-03-23 19:25 | Emergency (ER) | payer OTHER ==
[~2017-03-23] VITALS: Ht 165.1 cm; Wt 143.6 kg
[~2017-03-23 19:25] MED LIST changes: -ACET-1256 PO; -CYCL5TAB PO; -IBUP-103 PO; -ORAGEL TOP; -PENI-82 PO
[2017-03-23 19:30] VITALS: TEMP 37.1; Ht 165.1 cm; Wt 143.6 kg
--- NOTE | 2017-03-23 20:29 | DIAGNOSTIC IMAGING REPORT ---
R TOE(S) MIN 2 VIEWS CLINICAL HISTORY: 36 years-old Female presenting with Right fifth toe injury/fall. TECHNIQUE: Frontal, oblique, and lateral views of the right fifth toe were obtained. COMPARISON: None. FINDINGS: Intra-articular fracture of the base of the middle phalanx. The proximal interphalangeal joints is minimally disrupted. Symphalangism of the distal interphalangeal joints of the fifth toe noted. Regional soft tissue swelling. IMPRESSION: Minimally displaced intra-articular fracture at the base of the middle phalanx of the right fifth toe. Electronically signed by: Torito Yanez M.D. 03/23/2017 8:28 PM Dictated Date/Time: 03/23/2017 8:26 PM
--- NOTE | 2017-03-23 20:39 | EMERGENCY ROOM VISIT NOTE ---
ED Visit Note First contact with patient: 19:33 CHIEF COMPLAINT: Reinjury of right fifth toe. HISTORY OF PRESENT ILLNESS: This 36-year-old female presents to ER with chief complaint of reinjury of her right fifth toe. The patient states that 2 weeks ago she fell and broke her right fifth toe. She was placed in a postop shoe by [facility]. The patient states that the pain was not getting any better so she went back to [facility] 2 days ago and was told that the x-ray did not show any signs of healing. Then this evening she states she fell when she was not wearing the postop shoe and reinjured the right fifth toe. REVIEW OF SYSTEMS: 6 system review was performed and was negative unless stated otherwise in history of present illness. PMH: The patient is healthy; see chronic problem list SOCIAL HISTORY: Patient lives in [facility] PHYSICAL EXAM: Vital Signs: Were reviewed reviewed Nurse's notes. GENERAL: 36- year-old obese female appears in no acute distress. MENTAL Status: Alert and oriented 3. RIGHT FIFTH TOE: No gross bony deformity noted. There is generalized edema noted of the digit. Remainder foot is unremarkable. EMERGENCY DEPARTMENT COURSE: Patient was evaluated. X-ray of the right fifth toe was ordered and interpreted by the radiologist and myself. DIAGNOSTICS:R TOE(S) MIN 2 VIEWS CLINICAL HISTORY: 36 years-old Female presenting with Right fifth toe injury/fall. TECHNIQUE: Frontal, oblique, and lateral views of the right fifth toe were obtained. COMPARISON: None. FINDINGS: Intra-articular fracture of the base of the middle phalanx. The proximal interphalangeal joints is minimally disrupted. Symphalangism of the distal interphalangeal joints of the fifth toe noted. Regional soft tissue swelling. IMPRESSION: Minimally displaced intra-articular fracture at the base of the middle phalanx of the right fifth toe. Electronically signed by: Torito Yanez M.D. I requested the x-ray report from [facility] of the patient's toe x- ray. This was similar to the current radiologist reading. The patient was informed of the findings. The patient also informing that she has an appointment with the felt puller on March 29. The patient's toe was judy taped to the adjacent toe she was placed back in her postop shoe and was discharged home in stable condition. DIAGNOSIS: Right fifth toe fracture DISCHARGE INSTRUCTIONS & TREATMENT: Keep the toe judy taped to the adjacent toe. Tylenol and ibuprofen every 6 hours as needed for pain. Wear postop shoe until evaluated by the felt puller. Keep scheduled appointment with the felt puller on March 29. Problem List Medical Problems: (1) Asthma Status: Chronic (2) Bronchitis Status: Chronic (3) Cervicalgia Status: Resolved (4) DVT (deep venous thrombosis) Status: Resolved (5) Gestational diabetes Status: Resolved (6) Hemorrhagic ovarian cyst Status: Resolved (7) Ovarian cyst Status: Chronic (8) Ovarian cyst Status: Resolved (9) Ovarian Cyst Nec/Nos Status: Resolved (10) Ovarian torsion Status: Resolved (11) PE (pulmonary embolism) Status: Resolved (12) PNA (pneumonia) Status: Chronic (13) Postsurgical States Nec Status: Resolved Surgical Problems: (1) History of oophorectomy, unilateral Status: Resolved (2) Hx of cholecystectomy Status: Chronic Current/Historical Medications Scheduled PRN Tramadol (Ultram), 1 TAB PO TID PRN for Pain or Fever Allergies Coded Allergies: Phenazopyridine (Verified Allergy, Unknown, hives, jaundice, 11/02/16) Vital Signs Date Time Temp Pulse Resp B/P (MAP) Pulse Ox O2 Delivery O2 Flow Rate FiO2 03/23/17 19:30 37.1 81 18 154/81 100 Room Air Departure Information Referrals Alondra Kent (PCP) Patient Instructions My [facility]
[2017-03-23 20:58] VITALS: BP 149/80; PULSE 76; O2SAT 100
== END 2017-03-23 20:59 | disposition home or self-care (01) ==
LOC: C.EDB 19:27 → C.EDD 20:59
DX: S92.501A Displaced unspecified fracture of right lesser toe(s), initial encounter for closed fracture (principal); W19.XXXA Unspecified fall, initial encounter; J45.909 Unspecified asthma, uncomplicated

== ENCOUNTER 2017-06-22 20:10 | Emergency (ER) | payer OTHER ==
[~2017-06-22] VITALS: Ht 165.1 cm; Wt 158.7 kg
[2017-06-22 20:12] VITALS: TEMP 36.8; Ht 165.1 cm; Wt 158.7 kg
[2017-06-22] MEDS ORDERED: KETOROLAC TROMETHAMINE 30 MG/ML VIAL IV STA (20:23)
[2017-06-22] MEDS ORDERED: SODIUM CHLORIDE 0.9% 1000ML 1,000 ML IV STA (20:23)
[2017-06-22] MEDS ORDERED: ACET-1256 PO (20:34)
[2017-06-22] MEDS ORDERED: WLLSR150 PO (20:34)
[2017-06-22] MEDS ORDERED: ASPI325T39 PO (20:34)
--- NOTE | 2017-06-22 20:36 | EMERGENCY ROOM VISIT NOTE ---
History Report prepared by Rylan: Robin Leger Under the Supervision of: Dr. Lan Hoyt M.D. First contact with patient: 20:19 Chief Complaint: ABDOMINAL PAIN Stated Complaint: SEVERE STOMACH PAIN UNDER RIB CAGE Nursing Triage Summary: LUQ pain that has been shooting to right side as well starting around 3pm. History of Present Illness The patient is a 36 year old female who presents to the Emergency Room with complaints of constant left upper quadrant abdominal pain that started at 1400. She rates her pain as an 8/10 in severity. The patient states her pain is worsened with taking a deep breath. She describes the pain as a stabbing sensation. The patient states she came to [place] from [place] for a baby shower today. She states that around 1400 she developed left upper quadrant abdominal pain that "shoots across my stomach". The patient states that the last thing she ate today was a sandwich at 1100. The patient reports she has also been experiencing a chest tightness. She denies eating anything abnormal, urinary symptoms, nausea, vomiting, an abnormal bowel movement, diarrhea, and constipation. The patient states her last bowel movement was this evening. The patient reports a history of ovarian cysts, cholecystectomy, depression, a left ovarian cystectomy, and a right oophorectomy. The patient states she also has a history of a pulmonary embolism two years ago. She reports at that time she was experiencing back pain. She states that the physicians believed she developed a blood clot due to her weight and smoking every day. The patient states she was taking shots for her blood clot until a year ago when she became . She states she has not been taking blood thinners. The patient states she started her menstrual period two days ago. She reports her menstrual period is normal. Source of History: patient Onset: 1400 Position: abdomen (LUQ) Symptom Intensity: 8/10 Quality: stabbing Timing: constant Modifying Factors (Worsening): breathing Associated Symptoms: + chest pain, No nausea, No vomiting, No diarrhea, No urinary symptoms Note: Denies constipation Review of Systems See HPI for pertinent positives and negatives. A total of ten systems were reviewed and were otherwise negative. Past Medical & Surgical Medical Problems: (1) Asthma (2) Bronchitis (3) Cervicalgia (4) DVT (deep venous thrombosis) (5) Gestational diabetes (6) Hemorrhagic ovarian cyst (7) Ovarian cyst (8) Ovarian cyst (9) Ovarian Cyst Nec/Nos (10) Ovarian torsion (11) PE (pulmonary embolism) (12) PNA (pneumonia) (13) Postsurgical States Nec Surgical Problems: (1) History of oophorectomy, unilateral (2) Hx of cholecystectomy Family History Cancer Diabetes mellitus FH: gallbladder disease FH: kidney disease Heart disease Hypertension Lung disease Social History Smoking Status: Current Every Day Smoker Alcohol Use: occasionally Marital Status: Housing Status: lives with family Occupation Status: unemployed Current/Historical Medications Scheduled Bupropion HCl (Bupropion HCl Sr), 150 MG PO DAILY Ondasetron Odt (Zofran Odt), 4 MG SL Q6H Scheduled PRN Acetaminophen (Tylenol), 1,000 MG PO TID PRN for Pain Aspirin (Aspirin Ec), 650 MG PO BID PRN for Pain Allergies Coded Allergies: Phenazopyridine (Verified Allergy, Unknown, hives, jaundice, 11/02/16) Physical Exam Vital Signs Date Time Temp Pulse Resp B/P (MAP) Pulse Ox O2 Delivery O2 Flow Rate FiO2 06/23/17 01:36 88 145/75 06/22/17 23:58 85 16 164/75 98 Room Air 06/22/17 22:09 85 16 146/85 96 Room Air 06/22/17 20:12 36.8 105 20 155/89 96 Room Air Physical Exam GENERAL: Awake, alert, fatigued, uncomfortable appearing, in no distress, morbidly obese. HENT: Normocephalic, atraumatic. Dry mucous membrane. Oropharynx otherwise unremarkable. EYES: Normal conjunctiva. Sclera non-icteric. NECK: Supple. No nuchal rigidity. FROM. No JVD. RESPIRATORY: Clear to auscultation. CARDIAC: Regular rate, normal rhythm. Extremities warm and well perfused. Pulses equal. ABDOMEN: Soft, non-distended. Left upper abdominal tenderness. No peritoneal signs. No rebound or guarding. No masses. RECTAL: Deferred. MUSCULOSKELETAL: Left lower chest tenderness. The back is symmetrical on inspection without obvious abnormality. There is no CVA tenderness to palpation. No joint edema. LOWER EXTREMITIES: Calves are equal size bilaterally and non-tender. No edema. No discoloration. NEURO: Normal sensorium. No sensory or motor deficits noted. SKIN: No rash or jaundice noted. Medical Decision & Procedures ER Provider Diagnostic Interpretation: Radiology results as stated below per my review and radiologist interpretation: CHEST ONE VIEW PORTABLE HISTORY: 36 years-old Female CP SOB acute atypical chest pain with shortness of breath COMPARISON: Acute abdominal series radiographs 03/04/2015 TECHNIQUE: Portable AP view of the chest FINDINGS: Cardiomediastinal and hilar silhouettes are within normal limits. No pneumothorax, pleural effusion, focal airspace consolidation or overt pulmonary edema. Bones of the chest appear grossly intact. IMPRESSION: No acute process. The above report was generated using voice recognition software. It may contain grammatical, syntax or spelling errors. Electronically signed by: Jono Santana M.D. 06/22/2017 10:29 PM Dictated Date/Time: 06/22/2017 10:28 PM CTA CHEST: Compared to 11/19/14. Redemonstration of calcified material in the proximal right lower lobe pulmonary artery, similar to prior and suggestive of chronic process. Otherwise , no filling defects to suggest acute PE. No aortic aneurysm or dissection. Mild esophageal wall thickening. Patchy nonspecific lung densities, query atelectasis. No pneumothorax or pleural effusion. Small mediastinal and hilar lymph nodes. Inferior extension of left thyroid lobe noted. Radiologist: Kae King M.D. CT ABDOMEN AND PELVIS With Contrast: Compared to 10/29/15. Mild jejunal wall thickening or underdistention. Enteritis not entirely excluded in the appropriate clinical setting. No evidence of bowel obstruction. Left upper pole renal calcification/nonobstructing calculus. No hydronephrosis or evidence of ureteral stone. Scattered colonic diverticula. Unremarkable appendix. Probable right ovarian follicle. Tampon noted. Prior cholecystectomy. Radiologist: Kae King M.D. Laboratory Results 06/22/17 21:40 Red Blood Count 3.89, Mean Corpuscular Volume 105.7, Mean Corpuscular Hemoglobin 35.5, Mean Corpuscular Hemoglobin Concent 33.6, Mean Platelet Volume 10.0, Neutrophils (%) (Auto) 55.4, Lymphocytes (%) (Auto) 35.0, Monocytes (%) ( Auto) 7.2, Eosinophils (%) (Auto) 2.0, Basophils (%) (Auto) 0.2, Neutrophils # ( Auto) 5.25, Lymphocytes # (Auto) 3.31, Monocytes # (Auto) 0.68, Eosinophils # ( Auto) 0.19, Basophils # (Auto) 0.02 06/22/17 21:40 Test 06/22/17 21:40 White Blood Count 9.47 K/uL (4.8-10.8) Red Blood Count 3.89 M/uL (4.2-5.4) Hemoglobin 13.8 g/dL (12.0-16.0) Hematocrit 41.1 % (37-47) Mean Corpuscular Volume 105.7 fL (80-100) Mean Corpuscular Hemoglobin 35.5 pg (25-34) Mean Corpuscular Hemoglobin Concent 33.6 g/dl (32-36) Platelet Count 147 K/uL (130-400) Mean Platelet Volume 10.0 fL (7.4-10.4) Neutrophils (%) (Auto) 55.4 % Lymphocytes (%) (Auto) 35.0 % Monocytes (%) (Auto) 7.2 % Eosinophils (%) (Auto) 2.0 % Basophils (%) (Auto) 0.2 % Neutrophils # (Auto) 5.25 K/uL (1.4-6.5) Lymphocytes # (Auto) 3.31 K/uL (1.2-3.4) Monocytes # (Auto) 0.68 K/uL (0.11-0.59) Eosinophils # (Auto) 0.19 K/uL (0-0.5) Basophils # (Auto) 0.02 K/uL (0-0.2) RDW Standard Deviation 49.9 fL (36.4-46.3) RDW Coefficient of Variation 13.0 % (11.5-14.5) Immature Granulocyte % (Auto) 0.2 % Immature Granulocyte # (Auto) 0.02 K/uL (0.00-0.02) D-Dimer 540 ug/L FEU (0-500) Urine Color YELLOW Urine Appearance CLEAR (CLEAR) Urine pH 7.5 (4.5-7.5) Urine Specific [place] 1.010 (1.000-1.030) Urine Protein NEG (NEG) Urine Glucose (UA) NEG (NEG) Urine Ketones NEG (NEG) Urine Occult Blood 3+ (NEG) Urine Nitrite NEG (NEG) Urine Bilirubin NEG (NEG) Urine Urobilinogen NEG (NEG) Urine Leukocyte Esterase NEG (NEG) Urine WBC (Auto) 1-5 /hpf (0-5) Urine RBC (Auto) 0-4 /hpf (0-4) Urine Hyaline Casts (Auto) 1-5 /lpf (0-5) Urine Epithelial Cells (Auto) 10-20 /lpf (0-5) Urine Bacteria (Auto) NEG (NEG) Anion Gap 6.0 mmol/L (3-11) Est Creatinine Clear Calc Drug Dose 151.8 ml/min Estimated GFR () 111.6 Estimated GFR (Non- 96.3 BUN/Creatinine Ratio 8.1 (10-20) Lactic Acid Level 1.8 mmol/L (0.4-2.0) Calcium Level 8.8 mg/dl (8.5-10.1) Total Bilirubin 0.3 mg/dl (0.2-1) Direct Bilirubin < 0.1 mg/dl (0-0.2) Aspartate Amino Transf (AST/SGOT) 18 U/L (15-37) Alanine Aminotransferase (ALT/SGPT) 34 U/L (12-78) Alkaline Phosphatase 111 U/L (45-117) Troponin I < 0.015 ng/ml (0-0.045) Total Protein 7.1 gm/dl (6.4-8.2) Albumin 3.5 gm/dl (3.4-5.0) Lipase 106 U/L (73-393) Human Chorionic Gonadotropin, Qual NEG (NEG) Laboratory results reviewed by me Medications Administered Medications (Trade) Dose Ordered Sig/Tani Route Start Time Stop Time Status Last Admin Dose Admin Sodium Chloride 1,000 ml @ 999 mls/hr Q1H1M STAT IV 06/22/17 20:23 06/22/17 21:23 DC 06/22/17 20:52 999 MLS/HR Ketorolac Tromethamine (Toradol Inj) 15 mg NOW STAT IV 06/22/17 20:23 06/22/17 20:32 DC 06/22/17 20:51 15 MG Fentanyl Citrate (Fentanyl Inj) 50 mcg NOW STAT IV 06/22/17 22:31 06/22/17 22:32 DC 06/22/17 22:38 50 MCG Fentanyl Citrate (Fentanyl Inj) 50 mcg NOW STAT IV 06/22/17 23:52 06/22/17 23:53 DC 06/22/17 23:57 50 MCG ECG Per My Interpretation Indication: chest pain Rate (beats per minute): 90 Rhythm: normal sinus Findings: no acute ischemic change, other (Normal axis) ED Course 2020: The patient was evaluated in room B06. A complete history and physical exam was performed. 0124: I reevaluated the patient. Discussed results and discharge instructions: She verbalized understanding and agreement. The patient is ready for discharge. Medical Decision I reviewed the patient's past medical history, medications, and the nursing notes as described above. Differential Diagnosis: appendicitis, diverticulitis, PUD, biliary pathology, UTI, pancreatitis, obstruction, mesenteric ischemia, aortic pathology, infections, inflammatory bowel disease, renal colic, cardiac ischemia, aortic dissection, pulmonary embolism, pneumonia, pneumothorax, musculoskeletal, infections, pericarditis, myocarditis, esophageal rupture, as well as others were entertained. The patient is a 36-year-old woman, obese and active smoker, with a past medical history of PE 2 years ago not on AC, believed to be provoked by immobility secondary 2/2 her morbid obesity who presents to emergency department with left upper abdominal/left lower chest pain that began prior to arrival per hpi. On arrival the patient is uncomfortable but no acute distress , afebrile stable vital signs. Labs unremarkable including WBC, troponin, and Lactate wnl. D-dimer elevated and so CT-PE done and was negative per [facility] preliminary report. CT abd/pelvis also unremarkable with findings likely c/w early enteritis per [facility] preliminary report. Patient feeling improved after IVF and analgesia. Findings and plan for follow-up reviewed with patient. Patient agreeable and d/c'd per discharge instructions. Medication Reconcilliation Current Medication List: was personally reviewed by me Blood Pressure Screening Patient's blood pressure: Elevated blood pressure Blood pressure disposition: Referred to PCP Impression Primary Impression: Abdominal pain Additional Impression: Enteritis Scribe Attestation The scribe's documentation has been prepared under my direction and personally reviewed by me in its entirety. I confirm that the note above accurately reflects all work, treatment, procedures, and medical decision making performed by me. Departure Information Dispostion Home / Self-Care Prescriptions Ondasetron Odt (ZOFRAN ODT) 4 Mg Tab 4 MG SL Q6H for Nausea, #10 TAB Prov: Lan Hoyt M.D. 06/23/17 Referrals Alondra Kent (PCP) Patient Instructions ED Gastroenteritis Viral, [facility] Additional Instructions Please follow up with your primary care physician in the next 1-3 days for re- evaluation. Your symptoms are most likely related to an early gastroenteritis. Otherwise, your exam, EKG, lab results, CT scan of your chest and abdomen did not show signs of an emergent condition at this time. Acetaminophen for pain and fevers as needed. Zofran as needed for nausea. Drink plenty of fluids to ensure hydration. Return to the emergency department for worsening symptoms as described in the accompanying instructions. Problem Qualifiers
[2017-06-22 21:53] LABS: BASO % 0.2 %; BASO ABS # 0.02 K/uL (0-0.2); EOS ABS # 0.19 K/uL (0-0.5); HEMATOCRIT 41.1 % (37-47); HEMOGLOBIN 13.8 g/dL (12.0-16.0); IG# 0.02 K/uL (0.00-0.02); LYMPH ABS # 3.31 K/uL (1.2-3.4); MEAN CELL VOLUME 105.7 fL (80-100); MEAN CORPUSCULAR HEMOGLOBIN 35.5 pg (25-34); MEAN CORPUSCULAR HGB CONC 33.6 g/dl (32-36); MONO % 7.2 %; MONO ABS # 0.68 K/uL (0.11-0.59); NEUT % 55.4 %; NEUT ABS # 5.25 K/uL (1.4-6.5); PLATELET COUNT 147 K/uL (130-400); RED CELL DISTRIBUTION WIDTH SD 49.9 fL (36.4-46.3); WHITE BLOOD COUNT 9.47 K/uL (4.8-10.8)
[2017-06-22 22:21] LABS: ALBUMIN 3.5 gm/dl (3.4-5.0); AST/SGOT 18 U/L (15-37); BLOOD UREA NITROGEN 6 mg/dl (7-18); CALCIUM 8.8 mg/dl (8.5-10.1); CARBON DIOXIDE 27 mmol/L (21-32); CREATININE 0.79 mg/dl (0.60-1.20); GLUCOSE 88 mg/dl (70-99); POTASSIUM 3.7 mmol/L (3.5-5.1); SODIUM 141 mmol/L (136-145)
[2017-06-22 22:27] LABS: ALKALINE PHOSPHATASE 111 U/L (45-117); ALT/SGPT 34 U/L (12-78); LIPASE 106 U/L (73-393); TOTAL PROTEIN 7.1 gm/dl (6.4-8.2)
--- NOTE | 2017-06-22 22:30 | DIAGNOSTIC IMAGING REPORT ---
CHEST ONE VIEW PORTABLE HISTORY: 36 years-old Female CP SOB acute atypical chest pain with shortness of breath COMPARISON: Acute abdominal series radiographs 03/04/2015 TECHNIQUE: Portable AP view of the chest FINDINGS: Cardiomediastinal and hilar silhouettes are within normal limits. No pneumothorax, pleural effusion, focal airspace consolidation or overt pulmonary edema. Bones of the chest appear grossly intact. IMPRESSION: No acute process. The above report was generated using voice recognition software. It may contain grammatical, syntax or spelling errors. Electronically signed by: Jono Santana M.D. 06/22/2017 10:29 PM Dictated Date/Time: 06/22/2017 10:28 PM
[2017-06-22] MEDS ORDERED: FENTANYL CITRATE INJ 50 MCG/1 ML 2 ML VIAL IV STA ×2 (22:31→23:52)
[2017-06-22 23:58] VITALS: O2SAT 98
[2017-06-23] MEDS ORDERED: ONDA4TAB10 SL (01:23)
[2017-06-23 01:36] VITALS: BP 145/75; PULSE 88
--- NOTE | 2017-06-23 07:20 | DIAGNOSTIC IMAGING REPORT ---
(CHEST FOR PE) ANGIO WITH CLINICAL HISTORY: 36 years-old Female presenting with ^CP sob, prior PE, left upper quadrant abdominal pain. TECHNIQUE: Multidetector CT angiography of the chest was performed after administration of intravenous contrast. 3-D volumetric and/or maximum intensity projection (MIP) images were subsequently reconstructed for review. IV contrast: 95 mL of Optiray 320. A dose lowering technique was used consistent with the principles of ALARA (as low as reasonably achievable). COMPARISON: 11/19/2014. CT DOSE (mGy.cm): The estimated cumulative dose is 2451.28 mGy.cm. FINDINGS: Change Attendant topogram: Cholecystectomy clips noted. Pulmonary vasculature: The study is suboptimal for the assessment of the pulmonary vascular tree secondary to respiratory motion artifact and patient body habitus. Redemonstration of calcification within the distal right main pulmonary artery extending into the interlobar artery and right lower lobe pulmonary artery. There is also minimal extension into the right upper lobe pulmonary artery. This is most consistent with chronic thrombus. No acute or new filling defect within the pulmonary arteries to suggest embolus. Main pulmonary artery is not enlarged. No flattening of the interventricular septum. No intracardiac filling defect. No reflux of contrast into the hepatic veins. Remaining chest: On soft tissue windows, normal thyroid and thoracic inlet. No axillary, supraclavicular, hilar, or mediastinal lymphadenopathy. Normal aorta. Normal heart size. No pericardial or pleural effusion. Cholecystectomy clips noted. On lung windows, mosaic attenuation suggest small airways disease. Subtle centrilobular groundglass nodularity in the posterior segment of the right upper lobe. Similar but less pronounced findings may be present in the left upper lobe. Mild bronchial wall thickening. Central airways patent. On bone windows, normal osseous structures. IMPRESSION: 1. No evidence of acute pulmonary embolus. Redemonstration of chronic calcified thrombus in the right pulmonary arteries, unchanged. 2. Findings suggest small airways disease with diffuse bronchial wall thickening and subtle centrilobular groundglass nodularity in the upper lobes. These findings could relate to smoking related lung injury including respiratory bronchiolitis. An atypical infectious etiology is considered less likely. Electronically signed by: Torito Yanez M.D. 06/23/2017 7:19 AM Dictated Date/Time: 06/23/2017 6:54 AM
--- NOTE | 2017-06-23 07:38 | DIAGNOSTIC IMAGING REPORT ---
ABD/PELVIS IV CONTRAST ONLY CLINICAL HISTORY: 36 years-old Female presenting with LUQ abd pain, history of PE, chest pain. TECHNIQUE: Multidetector CT of the abdomen and pelvis was performed after the administration of intravenous contrast. IV contrast: 95 mL of Optiray 320. A dose lowering technique was used consistent with the principles of ALARA (as low as reasonably achievable). COMPARISON: 10/29/2015. CT DOSE (mGy.cm): The estimated cumulative dose is 2451.28 inclusive of the CTA chest. FINDINGS: Tv Host topogram: Cholecystectomy clips noted. Lung bases: Mosaic attenuation suggest small airways disease. Mild bronchial wall thickening. Normal heart size. No pericardial or pleural effusion. Liver: Normal morphology. No liver lesion. Patent hepatic vasculature. Biliary: No intrahepatic or extrahepatic biliary ductal dilatation. Gallbladder surgically absent. Pancreas: Mild parenchymal atrophy. Spleen: Normal. Adrenal glands: Normal. Kidneys and ureters: Focal cortical defect at the upper pole of the left kidney may be congenital or suggest reflux nephropathy or prior injury or infection. Nonobstructing 5 mm calculus at the upper pole the left kidney. No hydronephrosis. No perinephric inflammatory change. Bladder: Normal. Pelvic organs: Uterus and right ovary normal. Left ovary not visualized. Tampon in place. Bowel: Few diverticula are evident at the proximal sigmoid colon. The appendix is normal. No bowel obstruction. Mild wall thickening of the jejunum may be present though there is no perienteric inflammatory change. Peritoneal cavity: No free fluid or intraperitoneal gas. Lymph nodes: Prominent right external iliac lymph node with a normal fatty hilum is unchanged from prior. No other evidence of pathologically enlarged lymph nodes. Vasculature: Eccentric focus of calcification in the IVC is unchanged from prior and likely implies chronic changes related to prior thrombus. Aorta normal in course and caliber. Abdominal wall: Normal. Musculoskeletal: Normal. IMPRESSION: 1. Questionable wall thickening of jejunal bowel loops, which may imply mild enteritis. No perienteric inflammatory change. No other evidence of acute intra-abdominal pathology. 2. Nonobstructing 5 mm left renal calculus. 3. Eccentric calcification within the IVC is unchanged from prior and likely implies chronic changes related to prior thrombus. 4. Mosaic attenuation at the lung bases could suggest small airways disease or have a vascular etiology such as chronic thromboembolic disease. Electronically signed by: Torito Yanez M.D. 06/23/2017 7:37 AM Dictated Date/Time: 06/23/2017 6:54 AM
== END 2017-06-23 01:37 | disposition home or self-care (01) ==
LOC: C.EDB 20:11
DX: K52.9 Noninfective gastroenteritis and colitis, unspecified (principal); R10.12 Left upper quadrant pain; J45.909 Unspecified asthma, uncomplicated; Z86.718 Personal history of other venous thrombosis and embolism; Z86.711 Personal history of pulmonary embolism; F17.210 Nicotine dependence, cigarettes, uncomplicated; Z88.6 Allergy status to analgesic agent